=== PATIENT | female | born 1995 | race Caucasian/White ===

== ENCOUNTER 2021-09-03 20:03 | Inpatient (IN) ==
--- NOTE | 2021-09-03 20:56 | History & Physical Report ---
Date of Service September 03, 2021 Assessment & Plan (1) Supervision of normal intrauterine in primigravida: Plan: may well be in active labor but this is her first cervical check. Plan to monitor. Will admit if makes changed. fetus category one. History of Present Illness Chief Complaint: contractions Primary Care Provider: Uriah Mccabe Patient is a 26yowf with iup at 38 5/7 weeks who presents to labor and delivery complaining of contractions starting around 6pm. she also noted a small gush of fluid at that time but has no leaking since and no bleeding. complicatecd by +CT at nob and restest at 36 weeks negative. OB Labs: Blood Type A Positive 03/10/21 Antibody Screen NEGATIVE 03/10/21 Hemoglobin 10.3 g/dL (12.0-16.0) L 06/26/21 Hematocrit 31.1 % (37-47) L 06/26/21 Mean Corpuscular Volume 93.0 fL (80-100) 03/10/21 Platelet Count 263 K/uL (130-400) 03/10/21 Rubella IgG Antibody Immune (Immune) 03/10/21 Rapid Plasma Reagin Nonreactive (Nonreactive) 03/10/21 Hepatitis B Surface Antigen Neg (Neg) 03/10/21 HIV (1&2) Ab and P24 Ag, 4th Gener Neg (Neg) 03/10/21 Glucose 1 Hour 50 gm Load 92 mg/dl (70-130) 06/26/21 OB Optional Labs: Chlamydia trachomatis RNA NOT DETECTED (NOT DETECTED) 08/16/21 Neisseria gonorrhoeae RNA NOT DETECTED (NOT DETECTED) 08/16/21 GBS neg, declines genetics Allergies Allergy/AdvReac Type Severity Reaction Status Date / Time sertraline [From Zoloft] Allergy Verified 08/31/21 11:54 Home Medications Medication Instructions Recorded Confirmed Type prenat.vits,karin,vdg-vjcg-tsnfl 1 tab PO DAILY 03/02/21 08/31/21 History ferrous sulfate PO 07/10/21 08/31/21 History Patient History Surgical History H/O oral surgery S/P wisdom tooth extraction Family History Father Hypertension Mother Diabetes Liver disease Mental health problem Social History Smoking Status: Never smoker Second Hand Exposure: No; Do You Dip or Chew Tobacco: No; Tobacco Cessation Education Requested by Patient: No Hx Alcohol Use: No Hx Substance Use: No Preferred Language: Yakut marital status: Single marital status details: Kane (33) [phone] Current Living Situation: Family Current Living Situation Comment: lives with father current occupational status: employed current occupation: [employer] Feels Safe at Home: Yes Safety Concerns: Feels Safe At This Time OB History g1--present [employer] History hx of CT as noted Physical Exam Physical Exam: sse--no f/n/p, membranes visible as os, visually 1cm sve--/-2 us--cephalic toco--q2-4min efm--120s wtih mod variability, accels present, no decels Results & Data ([facility]) Vital Signs (Past 12 Hours) Vital Signs Temp Pulse Resp BP 09/03/21 20:12 36.8 C 96 H 24 117/74 09/03/21 20:08 36.8 C 24 Coding Level of Care Code None Diagnoses Supervision of normal intrauterine in primigravida Z34.00
[2021-09-03] MEDS ORDERED: OXYTOCIN 30 UNITS/500 ML BAG IV PRN (22:20)
--- NOTE | 2021-09-03 22:24 | Labor Progress Brief Note ---
Date of Service September 03, 2021 Subjective contractions much more painful, n/v. Assessment & Plan (1) Normal labor: Plan: in labor, admit, epidural per patient request, fetus category one. anticipate . Physical Exam Physical Exam: cx--4-5/100/-2 toco--q2-3 efm--140s with mod variability, accels to 150s, no decels Results & Data ([facility]) Vital Signs (Past 12 Hours) Vital Signs Temp Pulse Resp BP 09/03/21 20:12 36.8 C 96 H 24 117/74 09/03/21 20:08 36.8 C 24 Coding Level of Care Code None Diagnoses Normal labor O80; Z37.9
[2021-09-03] MEDS: LACTATED RINGER'S 1,000 ML IV PRN ×2 (22:40→23:50)
[2021-09-03 22:45] LABS: Hematocrit (blood only) 34.1 % (37-47); Hemoglobin 11.7 g/dL (12.0-16.0); Mean Corpuscular Hemoglobin 31.1 pg (25-34); Mean Corpuscular Hgb Conc 34.3 g/dL (32-36); Mean Corpuscular Volume 90.7 fL (80-100); Mean Platelet Volume 10.2 fL (7.4-10.4); Platelet Count 209 K/uL (130-400); RDW Coefficient of Variation 12.8 % (11.5-14.5); RDW Standard Deviation 42.6 fL (36.4-46.3); Red Blood Count 3.76 M/uL (4.2-5.4); White Blood Count 12.17 K/uL (4.8-10.8)
[2021-09-03] MEDS ORDERED: ePHEDrine sulfate 50 MG/ML AMP ONE (23:30)
[2021-09-03] MEDS ORDERED: SODIUM CHLORIDE 0.9% INJ 10 ML VIAL ONE (23:30)
[2021-09-03] MEDS ORDERED: BUPIVACAINE 0.25% 30 ML VIAL ONE (23:30)
[2021-09-03] MEDS ORDERED: fentaNYL citrate 100 MCG/2 ML VIAL ONE (23:30)
[2021-09-03] MEDS ORDERED: fentaNYL 2MCG/ML ROPIVACAINE 1.25MG/ML 100 ML BAG EPI ONE (23:31)
--- NOTE | 2021-09-03 23:37 | Anesthesiology Consultation ---
Date of Service September 03, 2021 Assessment & Plan (1) Encounter for pre-operative examination: Chart Review Chart Review: Acceptable Risk for Labor Epidural History Height/Weight Height: 5 ft Weight: 56.699 kg Allergies Allergy/AdvReac Type Severity Reaction Status Date / Time sertraline [From Zoloft] Allergy Verified 08/31/21 11:54 Medications Home Medications Medication Instructions Recorded Confirmed Last Taken prenat.vits,karin,doy-zphv-koxel 1 tab PO DAILY 03/02/21 08/31/21 Unknown ferrous sulfate PO 07/10/21 08/31/21 Unknown Active Medications Generic Name Dose Route Start Last Admin Trade Name Freq PRN Reason Stop Dose Admin Lactated Ringer's 1,000 mls @ 125 mls/hr 09/03/21 22:20 09/03/21 22:40 Lr IV 09/05/21 22:19 125 mls/hr .Q8H PRN Administration L&D Protocol Protocol Past Medical History Medical History (Updated 09/03/21 @ 23:37 by Jose Ramon Matthew MD) No significant past medical history Past Family History Family History Father Hypertension Mother Diabetes Liver disease Mental health problem Past Surgical History Surgical History H/O oral surgery S/P wisdom tooth extraction Social History Smoking Status: Never smoker Do You Dip or Chew Tobacco: No Hx Alcohol Use: No Hx Substance Use: No Physical Exam Vital Signs Last Vital Signs Temp 36.8 C 09/03/21 20:12 Pulse 96 H 09/03/21 20:12 Resp 24 09/03/21 20:12 BP 117/74 09/03/21 20:12 Testing Laboratory Results 09/03/21 22:20
[2021-09-04] MEDS ORDERED: NALOXONE HCL 1 MG in SODIUM CHLORIDE 0.9% 1000ML 1,000 ML IV PRN (00:22)
[2021-09-04] MEDS ORDERED: ePHEDrine sulfate 50 MG/ML AMP IV PRN (00:22)
[2021-09-04] MEDS ORDERED: NALOXONE HCL 0.4 MG/1 ML VIAL/CARP IV PRN (00:22)
[2021-09-04] MEDS ORDERED: ONDANSETRON INJ 2 MG/ML 2 ML VIAL IV PRN (00:22)
[2021-09-04] MEDS ORDERED: fentaNYL 2MCG/ML ROPIVACAINE 1.25MG/ML 100 ML BAG EPI PRN (00:22)
--- NOTE | 2021-09-04 01:15 | Labor Progress Brief Note ---
Date of Service September 04, 2021 Subjective comfortable after epidural Assessment & Plan (1) Normal labor: Plan: fetus overall reassuring, category one. continue current management. anticipate . Admission and Anticipated Discharge Date Admission Date: September 03, 2021 Physical Exam Physical Exam: cx--6-7/100/-2 toco--q2-4min, periods of spontaneous tachysytole efm--140s with mod variability, occasional variable/early, with tachysystole there was some decrease in fht to 120s but responds when period over, +scalp stim arom--blood tinged but suspect from bloody show Results & Data ([facility]) Vital Signs (Past 12 Hours) Vital Signs Temp Pulse Resp BP Pulse Ox 09/04/21 01:07 102 H 100 09/04/21 01:03 105 H 114/77 09/04/21 01:02 111 H 100 09/04/21 00:57 89 100 09/04/21 00:52 88 100 09/04/21 00:48 86 115/65 09/04/21 00:47 87 98 09/04/21 00:42 113 H 96 09/04/21 00:37 108 H 96 09/04/21 00:32 116 H 97 09/04/21 00:29 106 H 125/65 09/04/21 00:27 101 H 180/128 H 97 09/04/21 00:22 116 H 97 09/04/21 00:21 88 103/55 L 09/04/21 00:17 93 H 97 09/04/21 00:14 75 106/64 09/04/21 00:12 79 111/64 99 09/04/21 00:08 88 116/57 L 09/04/21 00:07 93 H 99 09/04/21 00:05 95 H 119/67 09/04/21 00:02 89 120/67 100 09/03/21 23:59 87 127/72 09/03/21 23:57 98 H 100 09/03/21 23:56 97 H 116/71 09/03/21 23:52 79 100 09/03/21 23:49 85 119/61 09/03/21 20:12 36.8 C 96 H 24 117/74 09/03/21 20:08 36.8 C 24 Coding Level of Care Code None Diagnoses Normal labor O80; Z37.9
[2021-09-04] MEDS ORDERED: NURSING L&D Epidural Breakthrough Pain Update ONE (02:19)
[2021-09-04] MEDS ORDERED: bisacodyL 10 MG SUPP PR PRN (04:41)
[2021-09-04] MEDS ORDERED: METHYLERGONOVINE MALEATE 0.2 MG/ML AMP IM ONE (04:41)
[2021-09-04] MEDS ORDERED: ACETAMINOPHEN 325 MG TAB PO PRN (04:41)
[2021-09-04] MEDS ORDERED: oxyCODONE/ACETAMINOPHEN 5mg/325mg TAB PO PRN (04:41)
[2021-09-04] MEDS ORDERED: HYDROCORTISONE ACETATE 25 MG SUPP PR PRN (04:41)
[2021-09-04] MEDS ORDERED: BENZOCAINE 20% AER SPR 82.5 GM CAN EXT PRN (04:41)
[2021-09-04] MEDS ORDERED: SUPERCREAM 0.870% 15 GM JAR EXT PRN (04:41)
[2021-09-04] MEDS ORDERED: OXYTOCIN 30 UNITS/500 ML BAG IV PRN (04:41)
[2021-09-04] MEDS ORDERED: DIPHTHERIA/TETANUS/PERTUSSIS 0.5 ML SYR/VIAL IM ONE (04:41)
[2021-09-04] MEDS ORDERED: IBUPROFEN 600 MG TAB PO PRN (04:41)
--- NOTE | 2021-09-04 04:44 | Delivery Summary ---
Vaginal Delivery Summary Date of Service September 04, 2021 Vaginal Delivery Summary [facility] Pre-operative Diagnosis: Pragnancy at 38 5/7 weeks normal labor Post-operative Diagnosis: same Procedure: epidural arom EBL: 300cc Anesthesia: epidural Procedure: The patient presented to labor and delivery in labor. She underwent and epidural and then once comfortable she had arom for clear fluid. She progressed to complete. The patient pushed for 45 minutes to deliver a viable male in gillian position. The nose and mouth were bulb suctioned on the perineum and the rest of the infant was then delivered without difficulty. The baby was vigorous. The nose and mouth were again bulb suctioned and the was placed in the maternal abdomen for drying and attention. Cord was clamped and cut at one minute of life. Cord blood and segment obtained. Placenta delivered spontaneous, intact with a three vessel cord. Cervix/sulci/rectum/perinuem were intact. Hemostasis obtained with dilute pitocin and fundal massage. Apgars were 8/9. Mother and baby doing well at the end of the delivery. [facility] Vaginal Delivery Charge Delivery Type Details: [facility]
[2021-09-04] MEDS ORDERED: METHYLERGONOVINE MALEATE 0.2 MG/ML AMP ONE (06:46)
--- NOTE | 2021-09-04 07:19 | Anesthesia Procedure Note ---
Date of Service September 04, 2021 Anesthesia Post Epidural Note Vital Signs Vital Signs: Temp Pulse Resp BP Pulse Ox 36.5 C 65 18 116/70 87 L 09/04/21 03:56 09/04/21 07:09 09/04/21 05:40 09/04/21 07:09 09/04/21 04:32 Notes Mental Status: alert / awake / arousable and participated in evaluation Nausea / Vomiting: adequately controlled Pain: adequately controlled Airway Patency, RR, SpO2: stable & adequate BP & HR: stable & adequate Hydration State: stable & adequate Neuraxial Anesthesia: was administered and sensory block is resolving Anesthetic Complications: no major complications apparent and Pt Satisfied with anesthetic care Epidural: Removed without complications and With tip intact Notes: Epidural site clean, dry and intact. No signs of edema, erythema or bruising at insertion site. Pt instructed to request anesthesia if she has residual lower extremity numbness or if she develops lower extremity pain or weakness, back pain or headache.
[2021-09-04] MEDS: PRENATAL VITAMIN 1 TAB PO SCH (08:19)
[2021-09-04] MEDS: DOCUSATE SODIUM 100 MG CAP PO SCH ×2 (08:19→21:06)
[2021-09-05 06:10] LABS: Hematocrit (blood only) 28.4 % (37-47); Hemoglobin 9.7 g/dL (12.0-16.0)
--- NOTE | 2021-09-05 06:51 | Obstetrical Progress Note ---
Date of Service <Amauri Danielle DO - Last Filed: 09/05/21 08:32> September 05, 2021 Assessment & Plan <Amauri Danielle DO Last Filed: 09/05/21 08:32> (1) Encounter for care and examination after delivery: 26 yo post op day 1 from vaginal delivery, doing well. -Continue routine post care. - vital sings reviewed and WNL. (Tmax 37.0) -Blood type A+, GBS -, Rubella Immune. -Encourage ambulation, monitor and control pain with Motrin, tylenol PRN, resume regular diet, monitor lochia. -encourage breast feeding -hemoglobin 9.7 <Flex Cooney MD - Last Filed: 09/05/21 08:39> (1) Encounter for care and examination after delivery: Subjective <Amauri Danielle DO - Last Filed: 09/05/21 08:32> Ambulation: ambulating normally Voiding: no voiding problems Passing Gas:: Yes Diet Tolerance:: regular diet Lochia:: Small Feeding Type:: breast feeding Current Pain Level(1-10): 0 Review of Systems Denies fever, chills, sweats Denies shortness of breath, difficulty breathing, chest pain, palpitations, chest pressure. Denies breast pain. Denies dysuria. Denies headache or changes in vision Physical Exam <Amauri Danielle DO Last Filed: 09/05/21 08:32> General: Alert, oriented. No acute distress. Cardiac: Regular rate and rhythm, no murmurs/rubs/gallops. Respiratory: Clear to auscultation bilaterally a/p, no wheezes/rales/rhonchi. No increased work of breathing. Symmetrical chest rise. No respiratory distress. Abdomen: Soft, nontender, nondistended. Bowel sounds present. Uterus: Uterine fundus firm, palpable 2 cm below umbilicus. Lower Extremities: No lower extremity edema or swelling. No deep calf pain. Jackson's negative bilaterally Results & Data ([facility]) <Amauri Danielle DO Last Filed: 09/05/21 08:32> Vital Signs (Past 12 Hours) Vital Signs Temp Pulse Pulse Resp BP BP Pulse Ox 09/05/21 03:05 36.7 C 73 16 102/67 99 09/04/21 23:35 36.7 C 78 18 108/73 99 09/04/21 19:45 37.0 C 69 18 112/76 99 <Flex Cooney MD - Last Filed: 09/05/21 08:39> Co-Signing Physician Notes Patient seen and evaluated and agree with the above findings and plan. Routine OB care Resident Activity Tracking <Amauri Danielle DO - Last Filed: 09/05/21 08:32> Resident Involvement: Resident Care Provided Care Provided: OB Delivery
[2021-09-05] MEDS: DOCUSATE SODIUM 100 MG CAP PO SCH ×2 (07:40→20:23)
[2021-09-05] MEDS: PRENATAL VITAMIN 1 TAB PO SCH (07:40)
[2021-09-05] MEDS ORDERED: bisacodyL 5 MG TABEC PO SCH (20:00)
--- NOTE | 2021-09-06 05:36 | Obstetrical Progress Note ---
Date of Service <Amauri Danielle DO - Last Filed: 09/06/21 07:12> September 06, 2021 Assessment & Plan <Amauri Danielle DO - Last Filed: 09/06/21 07:12> (1) Encounter for care and examination after delivery: 26 yo post day 2 from vaginal delivery, doing well. - vital sings reviewed and WNL. (Tmax 37.0) -Blood type A+, GBS -, Rubella Immune. -Encourage ambulation, recommended to control pain with Motrin, tylenol PRN. -encourage breast feeding -Discussed discharge with patient, patient will follow up with OB clinic in 6 weeks. <Denise Scanlon MD - Last Filed: 09/06/21 07:15> (1) Encounter for care and examination after delivery: Subjective <Amauri Danielle DO - Last Filed: 09/06/21 07:12> Ambulation: ambulating normally Voiding: no voiding problems Passing Gas:: Yes Diet Tolerance:: regular diet Lochia:: Small Feeding Type:: breast feeding Current Pain Level(1-10): 0 Review of Systems Denies fever, chills, sweats Denies shortness of breath, difficulty breathing, chest pain, palpitations, chest pressure. Denies breast pain. Denies dysuria. Denies headache or changes in vision Physical Exam <Amauri Danielle DO - Last Filed: 09/06/21 07:12> General: Alert, oriented. No acute distress. Cardiac: Regular rate and rhythm, no murmurs/rubs/gallops. Respiratory: Clear to auscultation bilaterally a/p, no wheezes/rales/rhonchi. No increased work of breathing. Symmetrical chest rise. No respiratory distress. Abdomen: Soft, nontender, nondistended. Bowel sounds present. Uterus: Uterine fundus firm, palpable 2 cm below umbilicus. Lower Extremities: No lower extremity edema or swelling. No deep calf pain. Jackson's negative bilaterally Results & Data ([facility]) <Amauri Danielle DO - Last Filed: 09/06/21 07:12> Vital Signs (Past 12 Hours) Vital Signs Temp Pulse Resp BP 09/06/21 00:00 36.7 C 73 18 114/71 <Denise Scanlon MD - Last Filed: 09/06/21 07:15> Co-Signing Physician Notes Resident Physician Supervision Note: I interviewed and examined the patient. Discussed with Dr. Danielle and agree with findings and plan as documented in the note. Any exceptions or clarifications are listed here: [ ] Documented By: Denise Scanlon MD, FACOG Resident Activity Tracking <Amauri Danielle DO - Last Filed: 09/06/21 07:12> Resident Involvement: Resident Care Provided Care Provided: OB Delivery
[2021-09-06] MEDS: DOCUSATE SODIUM 100 MG CAP PO SCH (07:47)
[2021-09-06] MEDS: PRENATAL VITAMIN 1 TAB PO SCH (07:47)
== END 2021-09-06 12:30 | disposition home or self-care (01) | DRG 807 ==
LOC: OPB 20:03 → 4S1 20:07 → 4S2 09-04 08:44